=== PATIENT | female | born 1990 | race Caucasian/White ===

== ENCOUNTER 2019-01-02 17:11 | Day surgery (SDC) ==
--- NOTE | 2019-01-02 17:42 | PROVIDER DOCUMENTATION ---
HPI-General Adult - General Chief Complaint: Abdominal Pain Stated Complaint: ABDOMINAL PAIN Time Seen by Provider: 01/02/19 17:21 Source: patient Allergies/Adverse Reactions: Patient Allergies Allergy/AdvReac Type Severity Reaction Status Date / Time No Known Allergies Allergy Verified 04/16/13 02:53 Home Medications: Home Medication List Medication Instructions Recorded Confirmed Last Taken Type Methylprednisolone [Medrol Dosepak] 4 mg PO DIRECTED #1 package 04/16/13 Unknown Rx RX: Azithromycin 1 gm PO DIRECTED #1 packet 04/16/13 Unknown Rx RX: Budesonide/Formoterol Inhaler 2 puff INH RTBID 04/16/13 04/16/13 Unknown History [Symbicort 160/4.5 Microgm Inhaler] - History of Present Illness -Gen Adult Nature of Presenting Problems: Pt. is 28 yof that presents with c/o lower abd pain while at work. Pt. reports she felt bad so she went to the bathroom. She reports no improvement but co uldn't go back to work. Pt. denies any N/V/D or fever at this time. She reports her pain is lower abd in nature. Location of Pain/Injury: reports: abdomen. denies: none, head, face, mouth, neck, chest, upper extremity, hand(s), back, pelvis, genitalia, lower extremity, feet, upper body, lower body, generalized, other Pain Radiation: reports: no radiation. denies: arm(s), back, buttocks, chest, epigastric, feet, groin, jaw, flank (L), legs (lower), LLQ, LUQ, neck, periumbilical, flank (R), RLQ, RUQ, shoulder(s), scapula, scrotal, sternal no tch, suprapubic, legs (upper), urethral, vaginal, other Quality of Pain: reports: aching. denies: burning, cramping, pressure, stabbing, throbbing, tightness Severity: reports: mild. denies: moderate, severe Onset/Duration: reports: abrupt, just prior to arrival Timing: reports: still present. denies: improving, gone now, intermittent, constant, getting worse Context/Activities at Onset: reports: none. denies: light activity, moderate activity, vigorous activity, recent emotional stress, recent physical stress, recent trauma history, possible bad food, cold exposure, eating, out of country travel, rest, sleep, sexual activity, other Modifying Factors: improves with: nothing Associated Symptoms: reports: denies symptoms. denies: anxiety, arm pain, back/neck pain, chest pain, constipation, cough, diaphoresis, diarrhea, dizziness, EENT symptoms, fatigue, fever/chills, genitourinary problems, headaches, heartburn, joint pain, loss of appetite, malaise, muscle aches, sinus congestion/drainage, nausea, rash, seizure, shortness of breath, sensory/motor loss, pain with inspiration, swelling/mass in abdomen, syncope, vomiting, weakness, trouble walking, other Similar Symptoms Previously?: No Recently seen or treated by another doctor?: No Review of Systems - Adult - REVIEW OF SYSTEMS - ADULT Constitutional: reports: no symptoms reported Eyes: reports: no symptoms reported Ears, Nose, Mouth & Throat: reports: no symptoms reported Cardiovascular: reports: no symptoms reported Respiratory: reports: no symptoms reported Gastrointestinal: reports: see HPI, abdominal pain. denies: difficulty swallowing, nausea, vomiting Genitourinary: reports: no symptoms reported Musculoskeletal: reports: no symptoms reported Integumentary: reports: no symptoms reported Neurological: reports: no symptoms reported Psychiatric: reports: no symptoms reported Past History - Adult - PAST MEDICAL HISTORY-ADULT Review of Records: reports: Old Records Reviewed, Medications Reviewed, Social history reviewed & non-contributory. - IMMUNIZATION STATUS Childhood Immunizations: See Nurse Assessment Flu Vaccine: See Nurse Assessment - FAMILY HISTORY Family History: reviewed, not pertinent - SOCIAL HISTORY Smoking: non-smoker Physical Exam-General - PHYSICAL EXAM-ADULT Initial Vital Signs Reviewed: Yes - CONSTITUTIONAL General Appearance: alert, mild distress, thin. negative: anxious, slow to respond, obtunded, combative - EYES Eyes: PERRL/EOMI, pink conjunctivae. negative: sclera injected, scleral ic terus, sunken eyes - HEAD, EARS, NOSE, MOUTH & THROAT HENMT: normocephalic/atraumatic, moist mucous membranes. negative: angioedema, frontal tenderness, maxillary tenderness - NECK Neck: non-tender, full range of motion, supple, normal inspection. negative: lymphadenopathy, trachial deviation, thyromegaly - RESPIRATORY Respiratory: lungs clear, normal breath sounds. negative: crackles, rales, rhonchi, stridor, wheezing - CARDIOVASCULAR Cardiovascular: normal peripheral pulses, regular rate, rhythm, no edema Progress - PLAN OF CARE/RESULTS Progress/Plan/Lab Results: Vital Signs - 8 hr 01/02/19 17:22 Temperature 97.7 F Pulse Rate 83 Respiratory Rate 18 Blood Pressure 120/65 O2 Sat by Pulse Oximetry 99 Orders Category Date Time Status ED: Urine Bedside ORDERED Care 01/02/19 17:21 Active Saline Loc NOW Care 01/02/19 17:21 Active AMYLASE [CHEM] Stat Lab 01/02/19 17:21 Uncollected CBC WITH ELECTRONIC DIFF [HEME] Stat Lab 01/02/19 17:21 Uncollected CK PROFILE [SP CHEM] Stat Lab 01/02/19 17:22 Uncollected COMPREHENSIVE METABOLIC PANEL [CHEM] Stat Lab 01/02/19 17:22 Uncollected LIPASE [CHEM] Stat Lab 01/02/19 17:22 Uncollected URINALYSIS W/POSS RFLX CULT [URINALYSIS] Stat Lab 01/02/19 17:22 Uncollected Laboratory Tests 01/02/19 01/02/19 01/02/19 17:42 17:42 17:50 WBC 19.77 H RBC 4.48 Hgb 13.8 Hct 39.9 MCV 89.1 MCH 30.8 MCHC 34.6 RDW Std Deviation 12.2 Plt Count 232 MPV 9.6 Immature Gran % (Auto) 0.2 Neut % (Auto) 89.4 H Lymph % (Auto) 5.6 L [place] % (Auto) 4.1 Eos % (Auto) 0.4 Baso % (Auto) 0.3 Immature Gran # (Auto) 0.03 Neut # (Auto) 17.68 H Lymph # (Auto) 1.11 L [place] # (Auto) 0.82 H Eos # (Auto) 0.08 Baso # (Auto) 0.05 Sodium 142 Potassium 4.1 Chloride 105 Carbon Dioxide 25 Anion Gap 12 BUN 14 Creatinine 0.7 Estimated GFR/1.73 m2 > 60 BUN/Creatinine Ratio 20 Glucose 109 H Calculated Osmolality 284 Calcium 9.1 Total Bilirubin 0.56 AST 16 ALT 17 Alkaline Phosphatase 83 Creatine Kinase 58 Total Protein 7.2 Albumin 4.3 Globulin 2.9 Albumin/Globulin Ratio 1.5 Amylase 51 Lipase 22 Urine Source CLEAN CATCH Urine Color YELLOW Urine Turbidity CLEAR Urine pH 5.5 Ur Specific [place] 1.018 Urine Protein NEGATIVE Ur Glucose (Stick) NEGATIVE Ur Ketones (Stick) 40 A Urine Blood NEGATIVE Urine Nitrite NEGATIVE Urine Bilirubin NEGATIVE Urobilinogen Dipstick NORMAL Urine Leukocytes NEGATIVE Urine WBC (Auto) <10 Urine RBC (Auto) <10 U Epithel Cells (Auto) <10 Urine Bacteria (Auto) 1+ Result Diagrams: 01/02/19 17:42 01/02/19 17:42 - CT/MRI 1 CT Study: Abdomen, Pelvis ([facility] [address] , [address], [place] [address] Department of Imaging Patient: CATRACHITO SMITHADM Date: 01/02/19#: [id number] : 1990ADM Status: [facility] ERAcct#: [id number] Age/Sex: 28/FRoom/Bed: Loc: ED Ordering Physician: Serge Marino Family Physician: Oscar Maurer MD Reason for Procedure: RLQ pain Signed EXAM: CT ABD/PELVIS W/IV CONT ONLY - 01/02/2019 HISTORY: RLQ pain TECHNIQUE: CT abdomen/pelvis with intravenous contrast. No oral contrast administered per request the referring provider. COMPARISON: None. FINDINGS: The visualized lung bases are clear. The liver is mildly prominent in size but demonstrates homogeneous attenuation. There is no discrete liver lesion identified. There is no substantial abnormalities of the spleen, adrenal glands, or pancreas identified. There are no calcified gallstones or pericholecystic inflammation identified. The bilateral kidneys enhance homogeneously. There is no hydronephrosis. There is no evidence of bowel obstruction. There is some limitation of detail without gross the bowel due to the lack of administered oral contrast. There is a tubular structure which extends posteriorly from the cecum. This measures up to 10 mm in diameter. This is suspicious for enlarged appendix. There are two small appendicoliths within the appendix, which is located base. There are mild periappendiceal inflammatory changes. These findings are suspicious for acute appendicitis. There are mildly prominent mesenteric lymph nodes at the right lower quadrant. There is no abscess identified. There is no free air identified. There is a small amount of free fluid in the pelvis. IMPRESSION: Findings which are suspicious for acute appendicitis. No abscess. No free air. Small amount of free fluid in pelvis. This report was discussed with Nurse Merna on 01/02/2019 at 8:00 PM and was readback. This exam was performed using automated exposure control, adjustment of mA or kV according to patient size, and/or use of iterative reconstruction technique. Electronically signed by Aries Leslie 01/02/2019 8:01 PM 01/02/192000 Interpreting Physician: Aries Leslie MD Dictated Date/Time: 01/02/191950 cc: Serge Marino; Oscar Maurer MD) CT Results: See note - CONSULTS/PCP/HOSPITALIST Notification #1 *Consult/PCP/Hospitalist*: Dr. Dietz Time Discussed: 20:08 Reason/Comments: Consult Consult Disposition: Will see in ED Departure - Departure Date of Disposition Decision: 01/02/19 Time of Disposition Decision: 20:08 DIAGNOSIS: Appendicitis Qualifiers: Appendicitis type: acute appendicitis Acute appendicitis type: with localized peritonitis Appendicitis gangrene presence: unspecified whether gangrene present Appendicitis perforation presence: unspecified whether perforation present Appendicitis abscess presence: unspecified whether abscess present Qualified Code(s): K35.30 - Acute appendicitis with localized peritonitis, without perforation or gangrene Disposition: ADMITTED INPATIENT 09 Certified Medical Emergency: Emergent Condition: Stable Referrals and Follow-Ups: Oscar Maurer MD [Primary Care Provider] - - Critical Care Note This patient required my direct & personal management of CC.: No Attestation - Physician/ DULCE Attestation Patient care was provided by Advanced Practice Provider:: Yes Advanced Practice Provider:: Serge Marino Advanced Practice Provider documentation review:: The Mid-level provider documentation, treatment plan and medical decision making was reviewed by the physician who agrees with all treatment and medical decision making by the P. The physician spent face to face time with patient:: No Advanced Practice Provider documentation review:: Supervising physician onsite and consulted in the evaluation and care of this patient. The physician did not have a face to face encounter with the patient.
[2019-01-02 18:01] LABS: URINE SOURCE CLEAN CATCH
[2019-01-02 18:01] LABS: BASO# 0.05 X1000 (0.0-0.2); BASO% 0.3 % (0.0-0.8); EOS# 0.08 X1000 (0.0-0.7); EOS% 0.4 % (0.0-10.0); HEMATOCRIT 39.9 % (37.0-47.0); HEMOGLOBIN 13.8 g/dL (12.0-16.0); IMM GRAN# 0.03 X1000 (0.0-0.04); IMM GRAN% 0.2 % (0.0-0.5); LYMPH# 1.11 X1000 (1.2-3.4); LYMPH% 5.6 % (20.5-51.1); MCH 30.8 PG (27-31); MCHC 34.6 g/dL (33-37); MCV 89.1 FL (81-99); MONO# 0.82 X1000 (0.11-0.59); MONO% 4.1 % (1.7-9.3); MPV 9.6 FL (7.4-10.4); NEUT# 17.68 X1000 (1.4-6.5); NEUT% 89.4 % (42.2-75.2); PLT 232 X1000 (130-400); RBC 4.48 XMIL (4.2-5.4); RDW 12.2 % (11.5-14.5); WBC 19.77 X1000 (4.8-10.8)
[2019-01-02 18:08] LABS: BILIRUBIN URINE NEGATIVE (NEGATIVE); BLOOD URINE NEGATIVE (NEGATIVE); COLOR YELLOW; GLUCOSE URINE NEGATIVE (NEGATIVE); KETONE URINE 40 mg/dL (NEGATIVE); LEUKOCYTES URINE NEGATIVE (NEGATIVE); NITRITE URINE NEGATIVE (NEGATIVE); PH URINE 5.5; PROTEIN URINE NEGATIVE (NEGATIVE); SP GRAVITY URINE 1.018; TURBIDITY URINE CLEAR (CLEAR); UR EPITHELIAL CELLS <10 /HPF (<10); URINE BACTERIA 1+ /HPF; URINE RBC <10 /HPF (<10); URINE WBC <10 /HPF (<10); UROBILINOGEN URINE NORMAL (NORMAL)
[2019-01-02 18:23] LABS: AGAP 12; ALB/GLOB RATIO 1.5; ALBUMIN 4.3 g/dL (3.5-5.0); ALKALINE PHOSPHATASE 83 U/L (32-104); AMYLASE 51 U/L (20-200); BUN 14 mg/dL (8-22); CALCIUM 9.1 mg/dL (8.8-10.2); CHLORIDE 105 mmol/L (98-107); CK PROFILE 58 U/L (24-173); COSMO 284; CREATININE 0.7 mg/dL (0.5-0.9); ESTIMATED GFR > 60; GLUCOSE 109 mg/dL (70-104); GOT 16 U/L (10-30); GPT 17 U/L (10-36); LIPASE 22 U/L (13-60); POTASSIUM 4.1 mmol/L (3.5-5.1); SODIUM 142 mmol/L (136-145); TCO2 25 mmol/L (25-35); TOTAL BILIRUBIN 0.56 mg/dL (0.20-1.00); TOTAL PROTEIN 7.2 g/dL (6.3-8.3)
[2019-01-02] MEDS ORDERED: ZOSYN 3.375 GM in NS 50 ML IV ONE (20:01)
--- NOTE | 2019-01-02 20:03 | Diag Imaging Result Doc PS360 ---
EXAM: CT ABD/PELVIS W/IV CONT ONLY - 01/02/2019 HISTORY: RLQ pain TECHNIQUE: CT abdomen/pelvis with intravenous contrast. No oral contrast administered per request the referring provider. COMPARISON: None. FINDINGS: The visualized lung bases are clear. The liver is mildly prominent in size but demonstrates homogeneous attenuation. There is no discrete liver lesion identified. There is no substantial abnormalities of the spleen, adrenal glands, or pancreas identified. There are no calcified gallstones or pericholecystic inflammation identified. The bilateral kidneys enhance homogeneously. There is no hydronephrosis. There is no evidence of bowel obstruction. There is some limitation of detail without gross the bowel due to the lack of administered oral contrast. There is a tubular structure which extends posteriorly from the cecum. This measures up to 10 mm in diameter. This is suspicious for enlarged appendix. There are two small appendicoliths within the appendix, which is located base. There are mild periappendiceal inflammatory changes. These findings are suspicious for acute appendicitis. There are mildly prominent mesenteric lymph nodes at the right lower quadrant. There is no abscess identified. There is no free air identified. There is a small amount of free fluid in the pelvis. IMPRESSION: Findings which are suspicious for acute appendicitis. No abscess. No free air. Small amount of free fluid in pelvis. This report was discussed with Nurse Bauman on 01/02/2019 at 8:00 PM and was readback. This exam was performed using automated exposure control, adjustment of mA or kV according to patient size, and/or use of iterative reconstruction technique. Electronically signed by Aries Leslie 01/02/2019 8:01 PM
[2019-01-02] MEDS ORDERED: NS 1,000 ML IV ONE (20:56)
--- NOTE | 2019-01-02 21:24 | HISTORY AND PHYSICAL ---
CHIEF COMPLAINT: Abdominal pain. ALLERGIES: No known drug allergies. HISTORY OF PRESENT ILLNESS: This is a 28-year-old female who presented with acute onset of lower mid abdominal pain today with associated nausea and chills. It is constant in nature. It is worse with moving around or lying stretched out. It is lessened with lying still and bringing her legs up closer to her abdomen. HOME MEDICATIONS: None, except control. SOCIAL HISTORY: Negative for tobacco, alcohol or illicit drug use. She works as a nurse practitioner. FAMILY HISTORY: Reviewed and noncontributory. REVIEW OF SYSTEMS: Ten systems reviewed and negative except as noted above. PHYSICAL EXAMINATION: VITAL SIGNS: Temperature 97.7, pulse 83, respirations 18, blood pressure 120/65. GENERAL: She is a well-developed, well-nourished female in no distress who looks her stated age. HEENT: Normocephalic, atraumatic. Extraocular muscles intact. Pupils equal, round, reactive to light. Sclerae anicteric. Moist mucous membranes. Hearing grossly normal. NECK: Supple, no thyromegaly. CARDIOVASCULAR: Regular rate and rhythm. RESPIRATORY: Bilateral breath sounds. No work of breathing. GASTROINTESTINAL: Soft, nondistended. No organomegaly or mass. No hernias. She has point tenderness in the right lower quadrant as well as a positive Rovsing sign. No rebound or guarding. EXTREMITIES: No clubbing, cyanosis or edema. SKIN: Warm and dry. No rash. MUSCULOSKELETAL: Moves all extremities equally and well. LABORATORY: Urine test negative. White blood cell count 19.8, hemoglobin 13.8, platelet count 232,000. Complete metabolic profile reviewed and unremarkable. Urinalysis reviewed and unremarkable. IMAGING: CT of the abdomen and pelvis with contrast was reviewed and it does show a suspicious appendicitis with appendicolith at the base of the appendix and mild periappendiceal inflammatory changes. No abscess or free air is identified. There is a small amount of free fluid in the pelvis. ASSESSMENT AND PLAN: A 28-year-old female with abdominal pain, leukocytosis, right lower quadrant tenderness, and imaging findings all consistent with acute appendicitis. I have recommended laparoscopic appendectomy to her. We discussed the risks, benefits and alternatives, including nonoperative management, bleeding, infection, injury to surrounding organs and other imponderables. She understands and agrees to proceed with laparoscopic appendectomy, which was my recommendation. cc: Randall Dietz MD
[2019-01-02] MEDS ORDERED: LR 1,000 ML ONE ×2 (21:28→23:24)
[2019-01-02] MEDS ORDERED: SENSORCAINE-MPF 0.5%/EPI 1:200,000 ONE (21:28)
[2019-01-02] MEDS ORDERED: QUELICIN (DOSE) ONE (21:46)
[2019-01-02] MEDS ORDERED: XYLOCAINE-MPF 2% ONE (21:46)
[2019-01-02] MEDS ORDERED: DIPRIVAN 1% ONE (21:46)
[2019-01-02] MEDS ORDERED: DECADRON ONE (21:59)
[2019-01-02] MEDS ORDERED: TORADOL ONE (21:59)
[2019-01-02] MEDS ORDERED: ZOFRAN ONE (21:59)
[2019-01-02] MEDS ORDERED: FENTANYL ONE (22:05)
[2019-01-02] MEDS ORDERED: ROBINUL ONE (22:12)
[2019-01-02] MEDS ORDERED: NEOSTIGMINE ONE (22:12)
--- NOTE | 2019-01-02 22:54 | OPERATIVE NOTE ---
PROCEDURE DATE: 01/02/2019 PREOPERATIVE DIAGNOSIS: Acute appendicitis. POSTOPERATIVE DIAGNOSIS: Acute appendicitis. PROCEDURE: Laparoscopic appendectomy. SURGEON: Randall Dietz MD. EMERGENCY NURSE: SEBASTIAN Villafana. ANESTHESIA: General. ESTIMATED BLOOD LOSS: 5 mL. COMPLICATIONS: None apparent. SPECIMENS: Appendix. FINDINGS: The appendix was acutely inflamed but without perforation or abscess. TECHNIQUE: The patient was brought to the operating room and placed supine on the table. General anesthesia was induced. She was prepped and draped in usual sterile fashion. Marcaine 0.25% with epinephrine was used to anesthetize our incisions. A 12 mm incision was made just below the umbilicus in the midline. The fascia was exposed and incised sharply. Entry into the peritoneal cavity was obtained under direct vision with the OptiKingmaker device. Pneumoperitoneum was established. The camera was inserted. There was no evidence of injury to underlying structures. Two 5 mm incision ports were placed under direct vision, one in the left lower quadrant and one in the suprapubic midline. She was then placed in Trendelenburg and left rotation. In the right lower quadrant, we easily found the inflamed appendix. I lifted it up anteriorly and created a window through the mesentery at the base of the appendix with a [place] forceps. The base of the appendix was then transected with an Endo-ZEKE stapler. The base appeared to be viable and without evidence of necrosis. I then transected the appendiceal mesentery with another firing of the Endo- ZEKE stapler. The appendix was placed in an EndoCatch bag. I then inspected the staple lines. There was minimal bloody oozing which was easily controlled with cautery. There was no further bleeding or any signs of injury to the bowel, and I deflated the abdomen and removed the ports, bringing the bag and appendix out through the umbilical port site. The umbilical fascia was closed with a [id number] 0 Vicryl. The skin was closed with 4-0 subcuticular Monocryl and Steri-Strips. There were no apparent complications. She was awakened in stable condition and transferred to the recovery room. cc: Randall Dietz MD
[2019-01-02] MEDS: DEMEROL ONE ×2 (23:03→23:42)
[2019-01-02] MEDS ORDERED: SODIUM CHLORIDE 0.9% 10 ML ONE (23:26)
[2019-01-02] MEDS: PHENERGAN ONE ×2 (23:28→23:39)
[2019-01-03] MEDS ORDERED: DILAUDID IV PRN (01:04)
[2019-01-03] MEDS ORDERED: ZOFRAN IV PRN (01:04)
[2019-01-03] MEDS ORDERED: LR 1,000 ML IV SCH (01:04)
[2019-01-03] MEDS: PERCOCET-10 PO PRN ×2 (03:14→06:55)
[2019-01-03 07:42] VITALS: BP 114/59
--- NOTE | 2019-01-03 12:53 | GENERAL SURGERY PROGRESS NOTE ---
DATE: 01/03/2019 SUBJECTIVE: The patient is feeling much better. Her preoperative abdominal pain has resolved. She now has some abdominal soreness from surgery. She is ambulating, voiding and tolerating a liquid diet. OBJECTIVE: Vital Signs: She is afebrile. Vital signs are stable. General: She is awake, alert, oriented x4. No acute distress. Cardiovascular: Regular rate and rhythm. Respiratory: No work of breathing. Gastrointestinal: Soft, nondistended. Appropriately tender. Incision is clean, dry, and intact. ASSESSMENT/PLAN: A 28-year-old female postoperative day 1 laparoscopic appendectomy. She is doing quite well. We will discharge her home. Instructions were given. cc: Randall Dietz MD
== END 2019-01-03 11:47 | disposition home or self-care (01) ==
LOC: 4N 17:11 → ED 17:11 → OPS 17:12
PROVIDERS: ATTEND Surgery
CPT/HCPCS: 74177; 80053; 81001; 81025; 82150; 82550; 83690; 85025; 86850; 86870; 86900; 86901; 86922; 88304; 96365; 99285; A9270; J0330; J1100; J1885; J2175; J2405; J2543; J2550; J3010; J7030; J7120; Q9967